=== PATIENT | female | born 1970 | race Caucasian/White ===

== ENCOUNTER 2017-07-18 04:40 | Inpatient (IN) | payer OTHER ==
--- NOTE | 2017-07-17 18:53 | History & Physical Pre-Op ---
General Information and HPI History of Present Illness: 47yo with chronic menorrhgia s/p endometrial ablation desires definitive surgical treatement and prophylactic removal of bilateral ovaries. Allergies/Medications Allergies: Coded Allergies: No Known Allergies (05/01/17) Home Med list Escitalopram Oxalate 10 MG TABLET 1 TAB PO DAILY MENTAL HEALTH (Reported) Ibuprofen 600 MG TABLET 1 TAB PO TID PRN PAIN with food Lorazepam 0.5 MG TABLET 1 TAB PO PRN ANXIETY (Reported) Tramadol HCl 50 MG TABLET 1 TAB PO PRN PAIN (Reported) Past History Medical History Psychiatric: anxiety Surgical History Pertinent Surgical History: none, , tubal ligation, cryoablation Review of Systems Review of Systems Constitutional: Reports: no symptoms. EENTM: Reports: no symptoms. Cardiovascular: Reports: no symptoms. Respiratory: Reports: no symptoms. GI: Reports: no symptoms. Genitourinary: Reports: no symptoms. Musculoskeletal: Reports: no symptoms. Skin: Reports: no symptoms. Neurological/Psychological: Reports: no symptoms. Hematologic/Endocrine: Reports: no symptoms. Immunologic/Allergic: Reports: no symptoms. All Other Systems: Reviewed and Negative Exam & Diagnostic Data Last 24 Hrs of Vital Signs/I&O Intake & Output 07/17 1600 / 0800 07/17 0000 Intake Total Output Total Balance Patient 132 lb Weight Physical Exam: HEENT: NCAT Chest: CTA CV": nl S1S2 Abd: soft, NTND Ext: no c/c/e Assessment/Plan Assessment/Plan: chronic menorrhagia TAHBSO As Ranked By This Provider Problem List: 1. Menorrhagia
[~2017-07-18] VITALS: Ht 162.6 cm; Wt 59.9 kg
[~2017-07-18 04:40] MED LIST: ESCITALOPRAM OX10 MG PO; IBUPROFEN600 M1 PO; LORAZEPAM0.5 M1 PO; TRAMADOL HCL50 M1 PO
[2017-07-18 06:27] LABS: ABSOLUTE BASOPHIL COUNT 0 /CUMM (0.0-0.2); ABSOLUTE EOSINOPHIL COUNT 0.1 /CUMM (0.0-0.7); ABSOLUTE GRANULOCYTE CT 2.4 /CUMM (1.4-6.5); ABSOLUTE LYMPH COUNT 0.9 /CUMM (1.2-3.4); ABSOLUTE MONOCYTE COUNT 0.7 /CUMM (0.10-0.60); BASOPHIL % 0.7 % (0.0-2.0); EOSINOPHIL % 1.4 % (0-5); GRANULOCYTE % 59.7 % (42.2-75.2); HEMATOCRIT 32.7 % (37-47); MEAN CORPUSCULAR HGB 27.8 PG (27.0-31.0); MEAN CORPUSCULAR HGB CONC 33.3 G/DL (33.0-37.0); MEAN CORPUSCULAR VOLUME 83.4 FL (81.0-99.0); MEAN PLATELET VOLUME 7.6 FL (7.4-10.4); PLATELET COUNT 245 /CUMM (130-400); RBC DISTRIBUTION WIDTH 17.3 % (11.5-14.5); RED BLOOD CELL CT 3.92 /CUMM (4.20-5.40)
--- NOTE | 2017-07-18 09:15 | Operative Report ---
Operative/Inv Procedure Report Surgery Date: 07/18/17 Name of Procedure: cystoscopy: bilateral stent insertion Pre-Operative Diagnosis: Menometrorrhagia Post-Operative Diagnosis: Menometrorrhagia Estimated Blood Loss: scant Surgeon/Er Nurse: MD Nimesh, Stephane-Urology Anesthesia: general endotracheal tube Drains: 18fr ortez Specimens: urine culture Complications: none Operative/Procedure Note Note: The patient was taken to the operating room and placed on the OR table in supine position. Timeout was performed, with the patient awake, to confirm identify, planned procedures, anesthesia, antibiotics and other pertinent lara-operative information. After adequate anesthesia, and IV antibiotics, the patient was placed in lithotomy Yellow-fin stirrups. She was then draped and prepped in the usual surgical fashion, including a vaginal prep. A 22 [place] cystoscope sheath with a 30 angle lens was inserted into the bladder without significant difficulty. The bladder was thoroughly and systematically examined, and was noted to be free of tumor, free of stone, free of endometriosis. Both ureteral orifices were in their orthotopic positions with clear reflux bilaterally. Under direct visualization the left orifice was intubated with a 5 [place] whistle-tip catheter, which was advanced easily into the left kidney pelvis. The right ureteral orifice was intubated with a second 5 [place] ureteral whistle tip catheter, and advanced into the right renal pelvis without difficulty. For identification purposes the blue marked stent went into the left kidney and the right ureteral stent was marked red. Urine culture was obtained and sent to pathology. The cystoscope was then removed leaving both stents in proper place. An 18 [place] Ortez catheter was inserted draining clear fluid and 10 mL of sterile water was then placed in the balloon. The ends ureteral stents, which protruded externally, were taped to the Ortez catheter in order to secure their position. The individual ureteral stents were then connected to their individual drainage devices. The patient tolerated the procedure well. All sponge needle and instrument count were correct at the end of this procedure. The patient was then placed in supine position with Venodyne's in place. At this point, Dr.Vander Huertas was able to proceed with the patient's surgery. Findings: normal bladder Discharge Disposition: proceed with Dr. Fuentes Additional Comments: Dr. Fuentes to remove bilateral stents at the end of his surgery. CC: Stephane Beavers MD
[2017-07-19 08:03] LABS: ABSOLUTE BASOPHIL COUNT 0 /CUMM (0.0-0.2); ABSOLUTE EOSINOPHIL COUNT 0 /CUMM (0.0-0.7); ABSOLUTE GRANULOCYTE CT 3.8 /CUMM (1.4-6.5); ABSOLUTE LYMPH COUNT 1.1 /CUMM (1.2-3.4); ABSOLUTE MONOCYTE COUNT 0.8 /CUMM (0.10-0.60); BASOPHIL % 0.3 % (0.0-2.0); EOSINOPHIL % 0 % (0-5); GRANULOCYTE % 67.1 % (42.2-75.2); MEAN CORPUSCULAR HGB 27.4 PG (27.0-31.0); MEAN CORPUSCULAR HGB CONC 32.5 G/DL (33.0-37.0); MEAN CORPUSCULAR VOLUME 84.3 FL (81.0-99.0); MEAN PLATELET VOLUME 8.7 FL (7.4-10.4); PLATELET COUNT 209 /CUMM (130-400); RBC DISTRIBUTION WIDTH 17.4 % (11.5-14.5); RED BLOOD CELL CT 3.21 /CUMM (4.20-5.40); WHITE BLOOD CELL COUNT 5.7 /CUMM (4.8-10.8)
[2017-07-19 08:58] LABS: HEMATOCRIT 27.1 % (37-47)
[2017-07-20] MEDS ORDERED: IBUPROFEN800 M1 PO (08:07)
[2017-07-20] MEDS ORDERED: PERCOCET 5-3251 EACH PO (08:07)
[2017-07-20 09:12] LABS: ABSOLUTE BASOPHIL COUNT 0 /CUMM (0.0-0.2); ABSOLUTE EOSINOPHIL COUNT 0.1 /CUMM (0.0-0.7); ABSOLUTE GRANULOCYTE CT 4.2 /CUMM (1.4-6.5); ABSOLUTE MONOCYTE COUNT 0.6 /CUMM (0.10-0.60); BASOPHIL % 0.4 % (0.0-2.0); EOSINOPHIL % 1.2 % (0-5); GRANULOCYTE % 71.8 % (42.2-75.2); MEAN CORPUSCULAR HGB 27.4 PG (27.0-31.0); MEAN CORPUSCULAR HGB CONC 32.6 G/DL (33.0-37.0); MEAN CORPUSCULAR VOLUME 84.1 FL (81.0-99.0); PLATELET COUNT 191 /CUMM (130-400); RBC DISTRIBUTION WIDTH 17.4 % (11.5-14.5); RED BLOOD CELL CT 3.33 /CUMM (4.20-5.40); WHITE BLOOD CELL COUNT 5.8 /CUMM (4.8-10.8)
--- NOTE | 2017-07-25 08:54 | Operative Report ---
Operative/Inv Procedure Report Surgery Date: 07/18/17 Name of Procedure: Total abdominal hysterectomy bilateral salpingectomy bilateral ovarian biopsies Pre-Operative Diagnosis: Chronic menorrhagia Post-Operative Diagnosis: Adenomyosis Estimated Blood Loss: 50ml to 100ml Surgeon/Laborer Operator: Angie Riley MD,Ish Dos Santos M.D. Anesthesia: general endotracheal tube Operative/Procedure Note Note: The patient is brought to the operating room placed on the OR table in dorsal supine position. After a timeout was performed she was given general anesthesia and successfully intubated. Bilateral ureteral stents were placed by Dr. Beavers and dictated by him. Ray catheter had been placed by Dr. Beavers and drained urine. Venodyne boots were placed prior to anesthesia and activated. The abdomen was prepped and draped in usual sterile fashion. A Pfannenstiel skin incision was made with the scalpel and taken down to the layer of the fascia. The fascia was nicked in the midline and extended bilaterally. The underlying rectus muscles were and the peritoneal cavity was entered bluntly. An O'Kartik-O'Chavez retractor was placed into the abdomen and the intestines were packed away using moistened laparotomy pads. The uterus was approximately 12-14 weeks' size and it was elevated with a double-tooth tenaculum and elevated throughout the case. The round ligaments were isolated and individually with 0 point Polysorb suture and tagged throughout the case. The bladder flap was taken down sharply off of the lower uterine segment and cervix. The adnexa were clamped using long Anuja's. The right utero ovarian ligament was clamped with a Gabriela clamp transected and suture ligated with 0 Polysorb. The same procedure is repeated on the left with good hemostasis. The right uterine artery was then clamped with a Chun clamp transected and suture ligated with 0 Polysorb. The same procedure is repeated on the left good hemostasis. The cardinal ligaments were sequentially taken down with Chun clamps transection and 0 Polysorb suture ligature with good hemostasis bilaterally. 2 great duct were placed over the cervix and the specimen was excised. The vaginal cuff was reapproximated using 0 Polysorb in a running locking fashion. Attention was then paid to the ovaries left ovary was noted to have a corpus luteum cyst and the cyst wall was excised and sent to pathology. The left fallopian tube was crossclamped with 2 great ducts and excised. A free tie and then suture ligature of 0 Polysorb were placed for good hemostasis. Essentially the same procedure is repeated on the right-hand side with biopsy of that ovary as well. The abdomen was then copiously irrigated with warm saline and all surgical sites were noted to be hemostatic. The laparotomy laparotomy pads were removed as well as the instruments and the patient was closed in the following fashion: Rectus muscles were reapproximated with a mattress suture of 0 Polysorb 2. The fascia was closed using 0 Polysorb in a running nonlocking fashion. Subcutaneous tissues were irrigated and coagulated were needed and the skin was closed using miranda. Dry sterile dressing was applied to the wound. The vagina was examined and noted to be hemostatic as well. The patient was then awakened and sent to recovery in good condition. All needle, sponge, and instrument counts were correct at the end of the procedure 2.
== END 2017-07-20 09:30 | DRG 743 ==
LOC: SDA 04:40 → ENRESERV 10:47 → ENTRNSPT 11:34 → EDTRNSPTSTS 11:40 → EDTRNSPT 11:40 → GNO 11:54 → CMPTRNSPT 12:07 → GNO 07-20 09:30
PROVIDERS: Obstetrics & Gynecology
PROC: 0UB20ZX Excision of Bilateral Ovaries, Open Approach, Diagnostic (ICD-10-PCS; principal; 2017-07-18)
PROC: 0UT90ZZ Resection of Uterus, Open Approach (ICD-10-PCS; principal; 2017-07-18)
PROC: 0UT70ZZ Resection of Bilateral Fallopian Tubes, Open Approach (ICD-10-PCS; principal; 2017-07-18)
PROC: 0T788DZ Dilation of Bilateral Ureters with Intraluminal Device, Via Natural or Artificial Opening Endoscopic (ICD-10-PCS; 2017-07-18)
DX: N92.0 Excessive and frequent menstruation with regular cycle (principal); N83.201 Unspecified ovarian cyst, right side; N83.202 Unspecified ovarian cyst, left side
CPT/HCPCS: GNOS; 36415; 87086; 88307; C9399; J0131; J0694; J1170; J1200; J1885; J2405; J2765